=== PATIENT | male | born 1995 | race African-American/Black ===

== ENCOUNTER 2017-06-04 00:40 | Emergency (ER) | payer OTHER ==
[2017-06-04 00:45] VITALS: TEMP 37.1
[2017-06-04] MEDS ORDERED: LORAZEPAM 2 MG/ML 1 ML VIAL IM STA ×2 (00:57→01:29)
[2017-06-04] MEDS ORDERED: HALOPERIDOL LACTATE 5 MG/ML 1 ML VIAL IM STA (00:57)
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
[2017-06-04 01:51] LABS: BLOOD UREA NITROGEN 16 mg/dl (7-18); CALCIUM 8.8 mg/dl (8.5-10.1); CARBON DIOXIDE 22 mmol/L (21-32); CREATININE 1.27 mg/dl (0.60-1.40); GLUCOSE 140 mg/dl (70-99); POTASSIUM 3.4 mmol/L (3.5-5.1); SODIUM 139 mmol/L (136-145)
[2017-06-04 08:47] VITALS: BP 99/79; PULSE 87; O2SAT 97
== END 2017-06-04 08:48 | disposition home or self-care (01) ==
LOC: C.EDB 00:45
DX: T51.0X1A Toxic effect of ethanol, accidental (unintentional), initial encounter (principal)